=== PATIENT | male | born 1945 | race Caucasian/White ===

== ENCOUNTER 2019-05-21 23:57 | Inpatient (IN) | payer MEDICAID, OTHER ==
[~2019-05-21] VITALS: Ht 172.7 cm; Wt 78.7 kg
[2019-05-22 00:15] VITALS: BP 114/62
--- NOTE | 2019-05-22 00:15 | NUR ---
8386-- PT BIBA BLS TO ER BED 9
--- NOTE | 2019-05-22 00:30 | NUR ---
74 YO MALE BIBA C/O RECTAL BLEEDING X1 @ SNF. STAFF @ FACILITY STATE X1 EPISODE BRIGHT RED BLOOD WITH BM NOTED. PT AOX2, FOLLOWING COMMANDS, BODY STIFF RIGID @ THIS TIME JUNCTIONAL RHYTHM ON MONITOR, PALPABLE PULSES TO BILATERAL UPPER AND LOWER EXTREMITIES. SKIN PALE, COOL DRY INTACT. SCATTERED BRUISING NOTED TO UPPER AND LOWER EXTREMITIES. SKIN TEARS TO BILATERAL ELBOWS. DISCOLORATION TO L AND R EYE. INCONTINENT. BED LOCKED IN LOWEST POSITION HX: SEPSIS STEMI, KIDNEY DX, COPD, HYPOTHYROID, DM, ANEMIA, EMBOLISM, CARDIAC DISEASE, DEMENTIA AX: MEPERDINE
[2019-05-22 01:44] LABS: EOSINOPHILS # (AUTO) 0.2 K/uL (0-0.4); LYMPHOCYTES # (AUTO) 0.6 K/uL (2.0-11.5); WHITE BLOOD COUNT (AUTO) 3.3 K/uL (4.8-10.8)
[2019-05-22 01:51] LABS: BASOPHILS % (AUTO) 0.9 % (0.0-2.0); EOSINOPHILS % (AUTO) 6.8 % (0.0-4.0); LYMPHOCYTES % (AUTO) 17.8 % (20.5-51.1); MEAN CORPUSCULAR HEMOGLOBIN 34 pg (27-31); MEAN CORPUSCULAR HGB CONC 33 g/dL (33-37); MEAN CORPUSCULAR VOLUME 105.6 fL (80-94); MONOCYTES # (AUTO) 0.3 K/uL (0.8-1.0); NEUTROPHILS # (AUTO) 2.2 K/uL (1.8-7.7); NEUTROPHILS % (AUTO) 66.5 % (42.2-75.2); PLATELET COUNT (AUTO) 164 K/uL (140-450); RED BLOOD CELL COUNT(AUTO) 2.18 MIL/uL (4.20-6.10); RED CELL DISTRIBUTION WIDTH 17.4 % (11.6-13.7)
[2019-05-22 02:04] LABS: HEMOGLOBIN 7.5 g/dL (12.0-18.0)
[2019-05-22 02:11] LABS: PROTHROMBIN TIME 12.5 secs (10.8-13.4)
[2019-05-22 02:17] LABS: ALBUMIN 2.4 g/dL (3.4-5.0); ANION GAP 12.1 (8-16); ASPARTATE AMINOTRANSFERASE 15 U/L (15-37); CARBON DIOXIDE 28.7 mmol/L (21-32); CHLORIDE 102 mmol/L (98-107); GLUCOSE 118 mg/dL (74-106); LIPASE 37 U/L (73-393); POTASSIUM 3.8 mmol/L (3.5-5.1); SODIUM SERUM 139 mmol/L (136-145); TOTAL BILIRUBIN 0.3 mg/dL (0.0-1.0); UREA NITROGEN, BLOOD 36 mg/dL (7-18)
[2019-05-22 02:21] LABS: CREATININE 4.4 mg/dL (0.7-1.3)
[2019-05-22] MEDS ORDERED: HALOPERIDOL IM 5 MG/ML VIAL IM ONE (02:30)
--- NOTE | 2019-05-22 02:30 | NUR ---
PT PULLING OFF LINES/MONITORS, REDIRECTED. MARLENED MADE AWARE.
[2019-05-22] MEDS ORDERED: NACL 0.9% 1,000 ML IV SCH (02:36)
[2019-05-22] MEDS ORDERED: ONDANSETRON 4 MG/2 ML VIAL IM/IVP PRN (02:40)
[2019-05-22] MEDS ORDERED: DOCUSATE SODIUM 100 MG GELCAP PO PRN (02:40)
[2019-05-22] MEDS ORDERED: MORPHINE SULFATE 2 MG/ML SYR IVP PRN (02:40)
[2019-05-22] MEDS ORDERED: ACETAMINOPHEN 325 MG TAB PO PRN (02:40)
[2019-05-22] MEDS ORDERED: HYDROcodone/APAP 5/325 MG 1 TAB TAB PO PRN (02:40)
--- NOTE | 2019-05-22 02:45 | NUR ---
PT CONTINUES TO PULL OFF LINES/MONITOR CABLES, PT UNABLE TO FOLLOW COMMANDS @ THIS TIME. ERMD MADE AWARE. YONAS CHRISTIANSON ORDERED. SEE EMAR FOR DETAILS
--- NOTE | 2019-05-22 02:48 | NUR ---
UNABLE TO OBTAIN URINE SAMPLE, PT REFUSING CATHETER WELL. MARLENED MADE AWARE.
[2019-05-22 03:11] LABS: MAGNESIUM 1.7 mg/dL (1.8-2.4); PHOSPHORUS 3.2 mg/dL (2.5-4.9); THYROID STIMULATING HORMONE 7.93 uIU/mL (0.34-3.74)
[2019-05-22] MEDS ORDERED: FAMO-90 PO (03:16)
[2019-05-22] MEDS ORDERED: QUET200T PO (03:18)
[2019-05-22] MEDS ORDERED: DIVA250E1 PO (03:18)
[2019-05-22] MEDS ORDERED: HYDR-5123 PO (03:19)
[2019-05-22] MEDS ORDERED: DOCU-300 PO (03:22)
[2019-05-22] MEDS ORDERED: ATI.5 PO ×2 (03:23→04:10)
[2019-05-22] MEDS ORDERED: RIVA20TA4 PO (03:24)
[2019-05-22] MEDS ORDERED: AMLO10TA PO (03:25)
[2019-05-22] MEDS ORDERED: DONE10TA10 PO (03:26)
[2019-05-22] MEDS ORDERED: METO100T14 PO (03:28)
--- NOTE | 2019-05-22 03:30 | NUR ---
Patient will be admitted to care of DR MCBRIDE. Admited to [facility] ROOM 108A Belongings list completed. Report to MITRA VELASQUZE.
[2019-05-22] MEDS ORDERED: ZIPRASIDONE MESYLATE 20 MG/ML VIAL IM ONE (03:35)
[2019-05-22 04:00] VITALS: BP 149/30
--- NOTE | 2019-05-22 04:00 | NUR ---
PT BROUGHT UP TO FLOOR SAKSHI, REPORT GIVEN [facility] B[facility] FOR CONTINUITY OF CARE, PT YELLING OUT HELP ME , HELP ME AND TRYING TO KICK AND SWING AT STAFF. PT WAS GIVEN HALDOL IM IN ER, HOWEVER HE IS STILL HAS BEHAVIORS. PT TRANSFERRED TO BED 108A WITHOUT ISSUE. PT HAS 3 SKIN TEARS AND IV SITE ON RIGHT UPPER CHEST. 22G. PT ALSO HAS QUINTAN CATH ON LEFT UPPER CHEST.PT PLACED ON FALLS PROTOCOL.
[2019-05-22] MEDS ORDERED: HYDROcodone/APAP 7.5/325 MG 1 TAB PO PRN (04:10)
[2019-05-22] MEDS ORDERED: DIVA125E1 PO (04:10)
[2019-05-22] MEDS ORDERED: DOCUSATE SODIUM 100 MG GELCAP PO SCH (04:10)
[2019-05-22] MEDS ORDERED: LORazepam 0.5 MG TAB PO PRN (04:10)
[2019-05-22] MEDS ORDERED: METO25TA PO (04:10)
[2019-05-22] MEDS ORDERED: WATER STERILE 10 ML MC ONE (04:11)
[2019-05-22] MEDS ORDERED: PANTOPRAZOLE 40 MG INJ VIAL IVP ONE (04:20)
[2019-05-22] MEDS ORDERED: MAG SULF 2000 MG/WATER PREMIX 50 ML IV ONE (04:35)
--- NOTE | 2019-05-22 05:00 | NUR ---
MD TANNER ORDERED 10MG OF GEODON IN A IM SHOT. PT WAS GIVEN SHOT, WELL NS RUNNING AT 60MLS/HR. MD TANNER ORDERED, ROCEPHIN IVPB, MAG SULFATE AND FLAGYL IVPB. PT HAS NO C/O OF PAIN. MD TANNER DID A RECTAL EXAM NO BM NOTED. NO BLEEDING IN RECTAL AT THIS TIME.
[2019-05-22 06:16] LABS: BASOPHILS % (AUTO) 0.9 % (0.0-2.0); EOSINOPHILS # (AUTO) 0.3 K/uL (0-0.4); EOSINOPHILS % (AUTO) 7.2 % (0.0-4.0); HEMATOCRIT 22.7 % (36-52); HEMOGLOBIN 7.4 g/dL (12.0-18.0); LYMPHOCYTES # (AUTO) 0.5 K/uL (2.0-11.5); LYMPHOCYTES % (AUTO) 14.7 % (20.5-51.1); MEAN CORPUSCULAR HEMOGLOBIN 35 pg (27-31); MEAN CORPUSCULAR HGB CONC 33 g/dL (33-37); MEAN CORPUSCULAR VOLUME 105.7 fL (80-94); MONOCYTES # (AUTO) 0.3 K/uL (0.8-1.0); MONOCYTES % (AUTO) 8.9 % (1.7-9.3); NEUTROPHILS # (AUTO) 2.4 K/uL (1.8-7.7); NEUTROPHILS % (AUTO) 68.3 % (42.2-75.2); PLATELET COUNT (AUTO) 162 K/uL (140-450); RED BLOOD CELL COUNT(AUTO) 2.15 MIL/uL (4.20-6.10); RED CELL DISTRIBUTION WIDTH 17.5 % (11.6-13.7); WHITE BLOOD COUNT (AUTO) 3.5 K/uL (4.8-10.8)
[2019-05-22] MEDS: metroNIDAZOLE 500 MG/NS PREMIX 100 ML IV SCH ×3 (06:33→21:26)
[2019-05-22 06:50] LABS: CHOL/HDL RATIO 2.5 (1-4.5)
--- NOTE | 2019-05-22 07:00 | NUR ---
PT SLEEPING NO S/S OF PAIN OF DISTRESS NOTED. WOUNDS REDRESSED. IV SITE INTACT AND RUNNING FLUIDS ORDERED. WILL ENDORSE CARE TO AM SHIFT.
--- NOTE | 2019-05-22 07:05 | NUR ---
RECEIVED PATIENT FROM VARNISH FINISHER NURSE. PATIENT IS SLEEPING AT THIS TIME. NO SIGNS OF DISTRESS NOTED. RESPIRATIONS EVEN AND UNLABORED, ON ROOM AIR. SKIN DRY, INTACT, BRUISING IN BOTH ARMS NOTED. REDNESS IN BUTTOCK NOTED. BOWEL SOUNDS PRESENT X4 QUADS. IV L UPPER CHEST, NS 0.9% 5 ML/HR. IV PATENT DRY AND INTACT. BED IN LOW POSITION. CALL LIGHT IS WITHIN REACH. WILL CONTINUE TO MONITOR.
[2019-05-22 08:00] VITALS: BP 131/30
[2019-05-22] MEDS ORDERED: METOPROLOL 25 MG TAB PO SCH (09:00)
[2019-05-22] MEDS: PANTOPRAZOLE 40 MG INJ VIAL IVP SCH ×2 (09:14→21:35)
[2019-05-22] MEDS: QUEtiapine FUMARATE 100 MG TAB PO SCH ×2 (09:23→21:48)
[2019-05-22] MEDS: FAMOTIDINE 20 MG TAB PO SCH (09:23)
[2019-05-22] MEDS: amLODIPine 5 MG TAB PO SCH (09:24)
[2019-05-22] MEDS: DIVALPROEX SPRINKLES 125 MG CAPDR PO SCH ×2 (09:24→21:43)
--- NOTE | 2019-05-22 09:24 | NUR ---
ADMINISTERED MORNING MEDICATIONS CRUSHED. PATIENT TOLERATED WELL. EDUCATED PATIENT ON MEDICATIONS. WILL CONTINUE TO MONITOR.
--- NOTE | 2019-05-22 10:00 | NUR ---
PATIENT OFF UNIT FOR CT OF THE HEAD.
--- NOTE | 2019-05-22 10:13 | NUR ---
PATIENT HAS BEEN SCREENED AND CATEGORIZED HIGH NUTRITION RISK. PATIENT WILL BE SEEN WITHIN 1-2 DAYS OF ADMISSION. 05/22/19-05/23/[address]
[2019-05-22] MEDS ORDERED: INSULIN LISPRO SLIDING SCALE 100 UNITS/ML VIAL SUBQ PRN (11:20)
[2019-05-22] MEDS: BLOOD GLUCOSE MONITORING 1 DEV DEV FS SCH ×3 (11:46→21:25)
[2019-05-22 12:00] VITALS: BP 102/33
[2019-05-22] MEDS: DEXT 5% / NACL 0.9% 500 ML IV SCH (12:15)
[2019-05-22] MEDS: DEXTROSE 50% 50 ML SYR IVP PRN (12:20)
--- NOTE | 2019-05-22 12:20 | NUR ---
ADMINISTERED D50 IVP FOR BLOOD SUGAR 65. WILL CONTINUE TO MONITOR.
[2019-05-22 12:26] LABS: APPEARANCE,URINE CLOUDY (CLEAR); BILIRUBIN,URINE NEGATIVE (NEGATIVE); BLOOD, URINE 2+ (NEGATIVE); COLOR,URINE YELLOW (YELLOW); LEUKOCYTE ESTERASE ,URINE 3+ (NEGATIVE); NITRITE, URINE NEGATIVE (NEGATIVE); UGLUCOSE NEGATIVE (NEGATIVE)
--- NOTE | 2019-05-22 13:00 | NUR ---
NOTIFIED [facility] OF DIALYSIS REGARDING PT'S HEMODIALYSIS SCHED FOR TOMORROW.
[2019-05-22 13:15] LABS: WBC,URINE 20-60 /HPF (0-5)
--- NOTE | 2019-05-22 13:32 | NUR ---
ADMINISTERED FLAGYL VIA IVPB. PATIENT IS CURRENTLY SLEEPING AT THIS TIME. WILL CONTINUE TO MONITOR PATIENT. BED IN LOW POSITION. CALL LIGHT IS WITHIN REACH.
--- NOTE | 2019-05-22 15:39 | NUR ---
PATIENT IS SLEEPING AT THIS TIME. NO DISTRESS NOTED. WILL CONTINUE TO MONITOR
--- NOTE | 2019-05-22 15:40 | NUR ---
Cash Control Specialist Note: Basic Screen: Yes High Risk DC Screen Yes Name: CHANDU TIWARI Home Relationship: SISTER Pre-Admission Living Arrangements: SNF Current Home Health Name/Tel: N/A Current DME/02 Name/Tel: N/A Current Hospice Name/Tel: N/A Current Dialysis Name/Tel: N/A Healthcare Decision Maker: Next of Kin Advance Directive No Discipline: Case Mgt/Social Svcs Tentative Discharge Plan/Destination: SNF/ECF Tentative Discharge Plan Summary: Patient is a 74-year-old male admitted for hyperkalemia, CHF, and ESRD. Patient has PMHX of Dementia, Bipolar DO, Anxiety, Schizoaffective DO, HTN ESRD on HD sat//sat with Dr. Haider, DM-II, CAD, Anemia requiring transfusions, Sepsis, Conjuctival Hemorrhage, Cardiac arrest x2 6 months ago, and Bradycardia with HR of 16. Patient was admitted from [facility]. SW called [facility] and was told that patient is a senior care patient and is currently on a bed hold. Patient's healthcare decision maker is Chandu Tiwari [phone], according to Dora Solo and has no advanced directive on file. Tentative plan after discharge is for patient to return to [facility]. No further needs identified. Signature: SHERYL Ross Date: May 22, 2019 Time: 15:37
--- NOTE | 2019-05-22 15:51 | NUR ---
05/22/19 RD INITIAL ASSESSMENT COMPLETED PLEASE REFER TO NUTRITION ASSESSMENT UNDER CARE ACTIVITY FOR ESTIMATED NUTRITIONAL NEEDS. 1. CONTINUE NPO UNTIL PT MEDICALLY APPROPRIATE TO BEGIN NUTRITION 2. [facility] WHEN APPROPRIATE 3. WHEN MEDICALLY APPROPRIATE PROVIDE GLUCERNA BID 4. RD TO FOLLOW-UP 2-3 DAYS, HIGH RISK SULMA NGUYỄN RD
[2019-05-22 16:00] VITALS: BP 150/40
[2019-05-22 18:36] LABS: EOSINOPHILS # (AUTO) 0.2 K/uL (0-0.4); HEMATOCRIT 25.8 % (36-52); HEMOGLOBIN 8.4 g/dL (12.0-18.0); LYMPHOCYTES # (AUTO) 0.4 K/uL (2.0-11.5); LYMPHOCYTES % (AUTO) 10.2 % (20.5-51.1); MEAN CORPUSCULAR HEMOGLOBIN 35 pg (27-31); MEAN CORPUSCULAR HGB CONC 33 g/dL (33-37); MEAN CORPUSCULAR VOLUME 106.7 fL (80-94); MONOCYTES # (AUTO) 0.3 K/uL (0.8-1.0); MONOCYTES % (AUTO) 7.8 % (1.7-9.3); NEUTROPHILS # (AUTO) 3.1 K/uL (1.8-7.7); PLATELET COUNT (AUTO) 180 K/uL (140-450); RED BLOOD CELL COUNT(AUTO) 2.42 MIL/uL (4.20-6.10); RED CELL DISTRIBUTION WIDTH 17.1 % (11.6-13.7); WHITE BLOOD COUNT (AUTO) 4.1 K/uL (4.8-10.8)
--- NOTE | 2019-05-22 19:25 | NUR ---
ENDORSED PATIENT TO OPERATING ROOM ORDERLY NURSE FOR CONTINUITY OF CARE. PATIENT IS IN STABLE CONDITION.
--- NOTE | 2019-05-22 19:25 | NUR ---
RECEIVED REPORT FROM MIRANDA VELASQUEZ DAYSHIFT NURSE AT BEDSIDE FOR CONTINUITY OF CARE, PT IN STABLE CONDITION.
[2019-05-22 20:00] VITALS: BP 114/30
--- NOTE | 2019-05-22 20:00 | NUR ---
MD WAS AT BEDSIDE FOR A CONSULT WITH RESIDENT. RESIDENT AOX1, HE DENIES ANY PAIN IN HIS ABDOMEN AND HAS NO EVIDENCE OF RECTAL BLEEDING AT THIS TIME. GERARD MCLEOD ORDERED A COLONOSCOPY TO BE DONE FOR SATURDAY AND BOWEL PREP TO BE STARTED NOW FOR THE PROCEDURE. PROCEDURE EXPLAINED AT BEDSIDE TO PT WHO VERBALIZED UNDERSTANDING.
--- NOTE | 2019-05-22 20:30 | NUR ---
PT IN BED RESTING WITH EYES CLOSED, HE WAS TURNED AND REPOSITIONED IN BED. V/S FOLLOWS: T 97.0 P 66 R 18 B/P 114/30 02 95% ON ROOM AIR. AWAITING BM FOR PENDING STOOL SAMPLE. IV SITE ON RIGHT CHEST INTACT AND RUNNING D5NS AT 10MLS/HR ORDERED. ALL FALLS PRECAUTIONS IN PLACE AT THIS TIME.
--- NOTE | 2019-05-22 21:00 | NUR ---
PT IN BED FINGERSTICK IS 78, NO HUMALOG COVERAGE NEEDED AT THIS TIME. ALL SCHEDULED MEDS GIVEN AT THIS TIME. MEDICATION EDUCATION DONE AT BED SIDE, PT VERBALIZED UNDERSTANDING. SNACK OF APPLE SAUCE GIVEN TO PT DUE TO LOW FINGERSTICK. PT UNABLE TO SIGN CONSENTS OF HD SCHEDULED FOR TOMORR AND THE COLONOSCOPE SCHEDULED FOR SATURDAY. SISTER CALLED AND WAS MADE AWARE OF THE PENDING PROCEDURES SISTER GAVE VERBAL CONSENT FOR PENDING PROCEDURES.
[2019-05-22] MEDS: DONEPEZIL 10 MG TAB PO SCH (21:43)
[2019-05-22] MEDS: METOPROLOL 25 MG TAB PO SCH (21:47)
[2019-05-22] MEDS: SENNA 8.6 MG TAB PO SCH (21:48)
[2019-05-22] MEDS: POLYETHYLENE GLYCOL 17 GM/PKT PO SCH (21:48)
[2019-05-23] VITALS (11 sets, daily range): BP systolic 95–175; BP diastolic 30–99
[2019-05-23] MEDS ORDERED: MORPHINE SULFATE 2 MG/ML SYR ONE (00:50)
--- NOTE | 2019-05-23 01:00 | NUR ---
PT IN BED RESTING WITH EYES CLOSED,STAFF ATTEMPTED TO TAKE B/P AND PT STARTED TO BECOME AGITATED SAYING I NEED HELP I TERI HELP, BUT WHEN ASKED COULD NOT EXPRESS WHAT HE NEEDED HELP WITH. PT CONTINUED TO KEEP REPEATING I NEED HELP AND STARTED TO GET LOUDER AND LOUDER AND MORE UNCOOPERATIVE WITH VITAL SIGNS. PT WAS GIVEN PO/PRN ATIVAN. PT CONTINUED TO SAY I NEED HELP. PT WAS GIVEN MORPHINE FOR C/O SEVERE GENERALIZED PAIN WHEN ASKED WHAT HE NEEDED HELP WITH AND IF HE WAS NI PAIN, HE SAID YES I HAVE PAIN, AND HE WAS GIVEN IVP MORPHINE FOR PAIN. RESIDENTS CALLED AND ORDERED HALDOL IM SHOT TO HELP CALM PT DOWN.
[2019-05-23] MEDS ORDERED: LORazepam 0.5 MG TAB PO SCH ×2 (01:30→09:00)
[2019-05-23] MEDS ORDERED: HALOPERIDOL IM 5 MG/ML VIAL IM ONE (01:30)
--- NOTE | 2019-05-23 01:35 | NUR ---
RESIDENT MADE AWARE THAT PT CONTINUES TO BE AGGITATED , YEELING AT STAFF AND TRYING TO GET OUT OF BED. MD TANNER ORDERED ANOTHER ATIVAN NOW AND BID INSTEAD OF PRN , TO KEEP PT CALM. WILL MONITOR EFFECTS OF MEDICATION. ALL FALLS PROTOCOL IN PLACE.
--- NOTE | 2019-05-23 02:10 | NUR ---
PT CONTINUES TO YELL OUT HELP ME HELP ME. HE IS IN BED WITH ALL FALLS PROTOCOL IN PLACE. FREQUENT ROUNDS PROVIDED FOR SAFETY. AWAITING EFFECT OF PRN MEDS.
--- NOTE | 2019-05-23 03:15 | NUR ---
PT ASLEEP, NO S/S OF PAIN OR DISTRESS NOTED. ALL FALLS PRECAUTIONS IN PLACE AND CALL REEDER IN REACH.
--- NOTE | 2019-05-23 04:00 | NUR ---
PT IN BED SLEEPING ALL FALLS PRECAUTIONS IN PLACE. V/S FOLLOWS: T 97.0 P 73 R 18 B/P 133/43 02 97% ON ROOM AIR.
--- NOTE | 2019-05-23 04:30 | NUR ---
NASEEM HUNG AND IS RUNNING ORDERED. IV SITE INTACT AND FLUSHED PATENT. Addendum: 05/23/19 at 0525 by Samira Musa RN CONCEPCION GUSMAN WAS HUNG AT 0430AM.
--- NOTE | 2019-05-23 05:23 | NUR ---
LAB DRAWS DONE AT BEDSIDE.
--- NOTE | 2019-05-23 05:30 | NUR ---
NASEEM HUNG AND RUNNING ORDERED. IV SITE IS ASYMPTOMATIC.
[2019-05-23] MEDS: metroNIDAZOLE 500 MG/NS PREMIX 100 ML IV SCH ×3 (05:33→20:38)
[2019-05-23] MEDS: DIVALPROEX SPRINKLES 125 MG CAPDR PO SCH ×3 (05:42→20:39)
[2019-05-23] MEDS: DEXTROSE 50% 50 ML SYR IVP PRN (05:57)
--- NOTE | 2019-05-23 06:00 | NUR ---
PT FINGERSTICK IS 62, PT GIVEN IV PUSH DEXTROSE VIA IV SITE ON RIGHT CHEST. PT GIVEN DEPAKOTE SPRINKLES ORDERED. WILL RETAKE FINGERSTICK.
[2019-05-23] MEDS: BLOOD GLUCOSE MONITORING 1 DEV DEV FS SCH ×4 (06:01→21:08)
[2019-05-23 06:28] LABS: BASOPHILS % (AUTO) 1.1 % (0.0-2.0); EOSINOPHILS # (AUTO) 0.2 K/uL (0-0.4); EOSINOPHILS % (AUTO) 5.5 % (0.0-4.0); HEMATOCRIT 24.2 % (36-52); HEMOGLOBIN 7.9 g/dL (12.0-18.0); LYMPHOCYTES # (AUTO) 0.5 K/uL (2.0-11.5); LYMPHOCYTES % (AUTO) 14.7 % (20.5-51.1); MEAN CORPUSCULAR HEMOGLOBIN 35 pg (27-31); MEAN CORPUSCULAR HGB CONC 33 g/dL (33-37); MEAN CORPUSCULAR VOLUME 107.5 fL (80-94); MONOCYTES # (AUTO) 0.4 K/uL (0.8-1.0); MONOCYTES % (AUTO) 10.5 % (1.7-9.3); NEUTROPHILS # (AUTO) 2.4 K/uL (1.8-7.7); NEUTROPHILS % (AUTO) 68.2 % (42.2-75.2); PLATELET COUNT (AUTO) 179 K/uL (140-450); RED BLOOD CELL COUNT(AUTO) 2.25 MIL/uL (4.20-6.10); RED CELL DISTRIBUTION WIDTH 17.1 % (11.6-13.7); WHITE BLOOD COUNT (AUTO) 3.5 K/uL (4.8-10.8)
[2019-05-23 06:38] LABS: ANION GAP 15.5 (8-16); CARBON DIOXIDE 26.7 mmol/L (21-32); CHLORIDE 103 mmol/L (98-107); GLUCOSE 68 mg/dL (74-106); POTASSIUM 4.2 mmol/L (3.5-5.1); SODIUM SERUM 141 mmol/L (136-145); UREA NITROGEN, BLOOD 39 mg/dL (7-18)
--- NOTE | 2019-05-23 06:40 | NUR ---
FINGERSTICK RETAKEN AND IS 135. PT ASLEEP IN BED NO S/S OF PAIN OR DISTRESS, WILL ENDORSE CARE TO RELIVING AM SHIFT, PT IN STABLE CONDITION.
[2019-05-23 06:42] LABS: PHOSPHORUS 4.7 mg/dL (2.5-4.9)
[2019-05-23 07:02] LABS: CREATININE 5.5 mg/dL (0.7-1.3)
--- NOTE | 2019-05-23 07:02 | NUR ---
CRITICAL LAB REPORTED BY CASI IN LAB, CREATININE CLEARANCE IS 5.5. PT IS SCHEDULED FOR HD TODAY.
--- NOTE | 2019-05-23 07:27 | NUR ---
CARE ENDORSED TO VANDANA RN DAYSHIFT NURSE AT BEDSIDE FOR CONTINUITY OF CARE, PT IN STABLE CONDITION.
--- NOTE | 2019-05-23 07:28 | NUR ---
Received report from pm nurse Samira. Pt asleep in bed, respirations even & nonlabored, responsive to tactile stimuli. Right chest IV 22G intact with ongoing D5NS @ 10ml/h. Bed alarm on. Call light within reach.
[2019-05-23] MEDS: METOPROLOL 25 MG TAB PO SCH (08:32)
[2019-05-23] MEDS: amLODIPine 5 MG TAB PO SCH (08:33)
[2019-05-23] MEDS: QUEtiapine FUMARATE 100 MG TAB PO SCH ×2 (09:00→20:39)
[2019-05-23] MEDS: FAMOTIDINE 20 MG TAB PO SCH (09:00)
--- NOTE | 2019-05-23 09:00 | NUR ---
Dialysis nurse came in to initiate hemodialysis. Pt remains asleep, responsive to tactile stimuli, no signs of distress.
--- NOTE | 2019-05-23 09:35 | NUR ---
Informed by dialysis nurse that pt's BP dropped to 70/30, NS 500ml bolus administered. BP reassessed = 110/35, pt asleep but arousable by tactile stimuli. Pt yelled out when arm was moved. No signs of pain/discomfort. Will cont to monitor. Hemodialysis tx ongoing, dialysis remains at bedside at all times.
--- NOTE | 2019-05-23 10:07 | NUR ---
Spoke to Dr Vallecillo re: dialysis nurse's request for heparin 500units flush per dialysis cath port after dialysis tx. Per Dr Vallecillo, will input order.
[2019-05-23 10:08] LABS: FOLIC ACID 16.4 ng/mL (>3.0)
--- NOTE | 2019-05-23 10:50 | NUR ---
Reported by Erin dialysis nurse that another 500ml NS bolus given d/t persistent hypotension. Current BP 71/32 HR 80. Pt is awake, restless, yelling "I need help" repeatedly but unable to state what he needs help for when asked. Pt shows no signs of pain. Dr Benz notified of hypotension & nursing interventions. Physician came to see pt at bedside, new orders given. Initiated 500ml NS bolus to right upper chest peripheral IV. Will continue to monitor.
[2019-05-23] MEDS ORDERED: NACL 0.9% 500 ML IV SCH (11:00)
[2019-05-23] MEDS ORDERED: ALBUMIN HUMAN 25% 100 ML IV ONE (11:15)
--- NOTE | 2019-05-23 12:00 | NUR ---
Per Erin dialysis nurse, hemodialysis stopped with 1.5hr treatment, 0ml taken out. Addendum: 05/23/19 at 1417 by Mary Alanis RN Addendum: Obtained verbal consent via phone from Chandu Karie (sister) for blood transfusion, verified with 2nurses.
[2019-05-23 12:33] LABS: EOSINOPHILS # (AUTO) 0.2 K/uL (0-0.4); EOSINOPHILS % (AUTO) 6.4 % (0.0-4.0); HEMATOCRIT 23.5 % (36-52); HEMOGLOBIN 7.6 g/dL (12.0-18.0); LYMPHOCYTES # (AUTO) 0.4 K/uL (2.0-11.5); LYMPHOCYTES % (AUTO) 12.4 % (20.5-51.1); MEAN CORPUSCULAR HEMOGLOBIN 35 pg (27-31); MEAN CORPUSCULAR HGB CONC 32 g/dL (33-37); MONOCYTES # (AUTO) 0.3 K/uL (0.8-1.0); MONOCYTES % (AUTO) 9.3 % (1.7-9.3); NEUTROPHILS # (AUTO) 2.4 K/uL (1.8-7.7); NEUTROPHILS % (AUTO) 70.9 % (42.2-75.2); PLATELET COUNT (AUTO) 159 K/uL (140-450); RED BLOOD CELL COUNT(AUTO) 2.17 MIL/uL (4.20-6.10); RED CELL DISTRIBUTION WIDTH 17.2 % (11.6-13.7); WHITE BLOOD COUNT (AUTO) 3.4 K/uL (4.8-10.8)
[2019-05-23] MEDS: PANTOPRAZOLE 40 MG INJ VIAL IVP SCH ×2 (12:38→20:40)
[2019-05-23] MEDS: SENNA 8.6 MG TAB PO SCH ×4 (12:41→21:08)
[2019-05-23] MEDS: LACTULOSE 20 GM/30 ML UDC PO SCH ×3 (12:41→18:03)
[2019-05-23] MEDS: POLYETHYLENE GLYCOL 17 GM/PKT PO SCH ×2 (12:42→20:39)
[2019-05-23] MEDS: DEXT 5% / NACL 0.9% 500 ML IV SCH (12:49)
[2019-05-23 12:56] LABS: ANION GAP 15.2 (8-16); CARBON DIOXIDE 26.4 mmol/L (21-32); CHLORIDE 104 mmol/L (98-107); GLUCOSE 125 mg/dL (74-106); POTASSIUM 3.6 mmol/L (3.5-5.1); SODIUM SERUM 142 mmol/L (136-145); UREA NITROGEN, BLOOD 26 mg/dL (7-18)
[2019-05-23 13:09] LABS: PROTHROMBIN TIME 11.7 secs (10.8-13.4)
--- NOTE | 2019-05-23 13:35 | NUR ---
Pt transferred to ICU3 via hospital bed, report given to Audelia ICU nurse.
--- NOTE | 2019-05-23 13:45 | NUR ---
AT 1336, PT RECEIVED FROM TELE UNIT VIA BED. PT A/O X4. MAKES NEEDS KNOWN. SCREAMING. IN ROOM AIR. NO SOB OR RESPIRATORY DISTRESS NOTED. SKIN DRY AND WARM TO TOUCH. RED RIGHT EYE NOTED. LUNGS DIMINISHED. ABDOMEN SOFT, ROUND AND NON-TENDER. ACTIVE BOWEL SOUND. PERIPHERAL LINE NOTED ON RIGHT UPPER CHEST 22 G. INTACT LINE D5%NS INFUSING AT 10 ML/HR. THERESE CATH NOTED ON LEFT UPPER CHEST. COVERED WITH DRESSING. INTACT DRESSING. OLD AV SHUNT SITE ON BOTH ARMS COVERED WITH DRESSING INTACT DRESSING. BRUISE NOTED ON RIGHT EYE, RIGHT ARM. SKIN TEAR NOTED ON LEFT LOWER LEG COVERED WITH DRESSING. INCONTINENT DERMATITIS NOTED ON BUTTOCKS AND SACRAL AREA WITH OPEN SKIN ON SACRAL AREA. PT WENT BM X1. KEPT AREA CLEAN AND DRY. OFFLOADED PRESSURE AREAS. HOB ELEVATED. BED IN LOW POSITION LOCKED. WILL CONTINUE TO MONITOR.
[2019-05-23] MEDS ORDERED: LORazepam 2 MG/ML VIAL IM/IVP SCH (14:11)
--- NOTE | 2019-05-23 15:45 | NUR ---
PT EVALUATED BY DR AMBROSE. DR. MENENDEZ AT THE BEDSIDE WITH DR. AMBROSE. WILL F/U ORDER.
[2019-05-23] MEDS ORDERED: EPOETIN ALFA 10,000 UNITS/ML VIAL IV SCH (16:28)
[2019-05-23] MEDS ORDERED: Z-GUARD PASTE TP ONE (16:28)
--- NOTE | 2019-05-23 16:30 | NUR ---
BMX1. CLEANED. KEPT PT DRY. REPOSITIONED. APPLIED MEDS PER ORDER, COVERED WITH VERSATEL DRESSING PER ORDER. OFFLOADED PRESSURE AREAS.
--- NOTE | 2019-05-23 16:40 | NUR ---
PT EVALUATED BY DR. BARRERA. UPDATED PT STATUS. NO NEW ORDER AT THIS TIME.
[2019-05-23] MEDS ORDERED: HALOPERIDOL 1 MG TAB PO ONE (16:55)
[2019-05-23] MEDS ORDERED: HALOPERIDOL IM 5 MG/ML VIAL ONE (17:07)
--- NOTE | 2019-05-23 17:25 | NUR ---
PT TAKEN TO THE CT.
--- NOTE | 2019-05-23 17:31 | NUR ---
MARKY MADE AWARE OF HD TOMORROW.
--- NOTE | 2019-05-23 17:41 | NUR ---
BACK FROM CT.
[2019-05-23] MEDS ORDERED: HALOPERIDOL IM 5 MG/ML VIAL IM SCH ×3 (18:00→23:25)
--- NOTE | 2019-05-23 18:25 | NUR ---
SPOKE TO MICHAEL ( [facility] ) RE: NEED TO TRANSFER PT. FOR NEUROSURGEON SPECIALIST. MED. RECORDS FAXED. Addendum: 05/23/19 at 1922 by Cindy Hernandez RN TEL. NUMBER [phone]. FAX NUMBER [phone].
--- NOTE | 2019-05-23 18:40 | NUR ---
SPOKE TO AZAM FROM [facility]. MEDICAL RECORDS FAXED. Addendum: 05/23/19 at 1924 by Cindy Hernandez RN AZAM FROM [facility] NOT [facility]. TEL. NO. [phone]. FAX NO. [phone]
--- NOTE | 2019-05-23 18:50 | NUR ---
SPOKE TO RUBIO FROM [facility] [phone]. MEDICAL RECORDS FAXED [phone].
--- NOTE | 2019-05-23 19:05 | NUR ---
DR. GARCIA MADE AWARE OF ELEVATED BP.
[2019-05-23 19:06] LABS: T4 (THYROXINE) 2.5 ug/dL (4.5 - 12.0)
--- NOTE | 2019-05-23 19:20 | NUR ---
ENDORSED TO HEATER OPERATOR RN FOR CONTINUITY OF CARE. PT STABLE AT THIS TIME.
[2019-05-23] MEDS ORDERED: hydrALAZINE 20 MG/ML VIAL IVP SCH (19:30)
--- NOTE | 2019-05-23 19:30 | NUR ---
RECEIVED REPORT FROM DAYSHIFT NURSE AT PATIENTS BEDSIDE. PATIENT IS RESTING CALMLY IN BED, EYES CLOSED, OPENS EYES TO NAME. PATIENT IS ALERT TO NAME BUT CONFUSED ON PLACE AND TIME. ON ROOM AIR WITH SATURATIONS AT 90%. PT HAS RIGHT UPPER CHEST PERIPHERAL LINE 22G, FLUSHED AND PATENT, INFUSING DS NS @ 10ML. LEFT UPPER CHEST IS THERESE CATHETER. LUNG SOUNDS ARE CLEAR, BREATHING IS UNLABORED, PATIENT IS ABLE TO MAKE FULL SENTENCES WITHOUT DISTRESS. S1S2, SR ON MONITOR. SKIN IS WARM AND DRY. VISIBLE BRUISES NOTED ON BILATERAL UPPER EXTREMITIES. RIGHT LOWER LEG IS A SMALL PRESSURE ULCER, BARRIER CREAM IS NOTED WITH A CLEAN AND DRY DRESSING. ABDOMEN IS SOFT AND NONTENDER, WITH ACTIVE BOWEL SOUNDS. ADULT DIAPER IN PLACE, PATIENT IS INCONTINENT. INCONTINENT DERMATITIS NOTED AT PERINEAL AREA, HYDRAGUARD APPLIED, THERE IS A SMALL SKIN TEAR AT THE SACRUM. DRESSING IS IN PLACE. CALL LIGHT IS WITHIN REACH, PATIENT IS UPDATED ON CARE PLAN. SIDERAILS UPx3, ALL SAFETY ALARMS IN PLACE, WILL CONTINUE TO MONITOR.
--- NOTE | 2019-05-23 20:05 | NUR ---
PER RESIDENT MD, OK TO NOT INFUSE 1 UNIT OF PRBC'S. ORDER/PARAMETERS INDICATE TO INFUSE 1 UNIT IF HGB LESS THAN 7, PATIENTS HGB IS 7.6.
--- NOTE | 2019-05-23 20:30 | NUR ---
JOSELINE FROM [facility] CALLED; NO BED AVAILABLE @ THIS TIME.
[2019-05-23] MEDS: DONEPEZIL 10 MG TAB PO SCH (20:40)
[2019-05-23] MEDS ORDERED: BOWEL EVACUANT DRINK 4,000 ML PDS PO SCH (20:40)
--- NOTE | 2019-05-23 21:00 | NUR ---
[facility] CALLED; PATIENT ACCEPTED, AWAITING BED.
--- NOTE | 2019-05-23 21:45 | NUR ---
[facility], [place], CALLED TO SETUP WILL CALL TRANSPORT, ON [place]. AWAITING BED @ [place].
--- NOTE | 2019-05-23 22:14 | NUR ---
PATIENT IS SCREAMING AND CURSING AT STAFF. PATIENT ATTEMPTING TO REMOVE LINES/EQUIPMENT. DESPITE CLEANING AND CHANGING PATIENT, PATIENT IS STILL AGGRESSIVE, SPITTING ON NURSES, AND THREATENING STAFF. RESIDENT MD AWARE, ADMINISTERED HALDOL 1MG IM ORDERED.
[2019-05-23] MEDS ORDERED: LORazepam 2 MG/ML VIAL IVP SCH ×2 (22:55→23:25)
--- NOTE | 2019-05-23 23:00 | NUR ---
PATIENTS AGITATED BEHAVIOR IS ESCALATING, ATTEMPTING TO PULL OUT ALL LINES AND EQUIPMENT, PATIENT TRYING TO GET OUT OF BED. RESIDENT MD MADE AWARE, OK TO USE RESTRAINTS THAT WERE INITIATED THIS MORNING. WILL CARRY OUT.
--- NOTE | 2019-05-23 23:05 | NUR ---
SOFT WRIST RESTRAINTS IN PLACE. PATIENT IS THRASHING AROUND IN BED, SPITTING AT NURSES. PATIENT RIPPED HAND OUT OF THE RIGHT WRIST RESTRAINT AND CUT OPEN WRIST. SMALL LACERATION NOTED, RN STOPPED BLEEDING AND PHOTOGRAPH IS TAKEN AND DOCUMENTED. NONADHERING DRESSING IN PLACE AND KERLIX ROLL APPLIED. PATIENT IS CLEANED AND REPLACED LINEN AND GOWN. ALL VITALS REMAIN WITHIN NORMAL RANGE. IVP ATIVAN WAS GIVEN ORDERED. RESIDENT MD MADE AWARE OF SMALL CUT.
[2019-05-23] MEDS ORDERED: ZIPRASIDONE MESYLATE 20 MG/ML VIAL IM SCH (23:25)
--- NOTE | 2019-05-23 23:25 | NUR ---
CALLED RESIDENT DOCTOR, PATIENT IS CONTINUING TO SCREAM, CURSE, AND PULL OUT LINES. PATIENT IS UNCOOPERATIVE AND DIFFICULT TO CALM DOWN/CONSOLE. ALL VITALS ARE STABLE, PATIENT IS ROOM AIR WITH SATURATION 93%. NEW ORDERS FOR GEODON IM 10MG, WILL CARRY OUT.
--- NOTE | 2019-05-23 23:28 | NUR ---
SPO[place] WITH CAROLYN [place] [facility] BED [place] READY FOR PT TRANSFER. ACCEPTING MD-DR. MCBRIDE, PATIENT WILL GO TO SICU-BED #429, WILL CALL FOR REPORT. [phone]
[2019-05-24] VITALS: BP 95/68
--- NOTE | 2019-05-24 00:20 | NUR ---
PATIENT IS STARTING TO CALM DOWN, PATIENT IS NOT SCREAMING ANYMORE. RESTING IN BED, EYES OPEN. VSS. RESTRAINTS REMOVED.
--- NOTE | 2019-05-24 00:28 | NUR ---
CALLED [facility] TO GIVE REPORT, PHONE CALL DISCONNECTED, CALLED BACK, WAS TOLD TO CALL BACK IN 15 MINUTES, NURSE IS CURRENTLY WITH CRITICAL PATIENT. WILL CARRY OUT.
[2019-05-24] MEDS ORDERED: Z-GUARD PASTE TP SCH (01:00)
--- NOTE | 2019-05-24 01:00 | NUR ---
CALLED BACK AT SICU AT [facility]. BOTH NURSE AND CHARGE NURSE TO RECEIVE TRANSFER IS CODING ANOTHER PATIENT, WAS TOLD TO CALL BACK AGAIN IN 15 MINUTES. WILL CARRY OUT.
--- NOTE | 2019-05-24 01:20 | NUR ---
PATIENT AWAKE AGAIN AND STARTING TO CONTINUOUSLY SCREAM "HELP ME". EYES ARE CLOSED, PATIENT IS CONFUSED, NO SIGNS OF DISTRESS NOTED. PATIENT RESTLESS. TURNED AND REPOSITIONED PATIENT AND APPLIED ANOTHER BLANKET, WILL CONTINUE TO MONITOR.
[2019-05-24 02:00] VITALS: BP 134/69
--- NOTE | 2019-05-24 02:00 | NUR ---
[facility] CALLED TO NOTIFY RN REGARDING CARDIOLOGY NURSE. CURRENTLY RECEIVING NUMEROUS 911 CALLS AND UNABLE TO RECOVER OR PICKUP AT THIS TIME, ASKED TO ALLOW FOR ANOTHER 90 MINUTES AND WILL CALL BACK FOR FOLLOWUP.
--- NOTE | 2019-05-24 03:40 | NUR ---
PT RESTING WELL IN BED, EYES CLOSED, SNORING LOUD. NO SIGNS OF SOB OR DISTRESS. GOOD CHEST RISE AND FALL. BED IN LOWEST POSITION, SIDERAILS UP, SAFETY ALARMS IN PLACE.
[2019-05-24 04:00] VITALS: BP 132/72
--- NOTE | 2019-05-24 04:00 | NUR ---
CALLED [facility] FOR UPDATE, CONFIRMED THEY ARE PARKING NOW.
--- NOTE | 2019-05-24 05:00 | NUR ---
PATIENTS LAST VITAL SIGNS BEFORE CONNECTED TO [facility]'S EQUIPMENT: HEART RATE-67 BPM, BP-130/71, 02 SAT-99%, RR-13, FLACC 0.
--- NOTE | 2019-05-24 05:15 | NUR ---
[facility] HERE TO FOLDER INSPECTOR PATIENT FOR TRANSFER, REPORT GIVEN TO EMT AND PACKET/MEDICAL RECORD TAKEN WITH PATIENT. IV FLUIDS D/C AND IV SITE FLUSHED AND SALINE LOCKED. PATIENT CONNECTED TO TELE MONITOR. TRANSFERRED TO [facility] WITHOUT INCIDENT.
--- NOTE | 2019-05-24 05:25 | NUR ---
CALLED REPORT TO RON CARABALLO AT [facility], REPORT GIVEN.
--- NOTE | 2019-05-24 05:57 | NUR ---
PATIENTS SISTER CALLED FOR UPDATE, TRANSFERRED TO RESIDENT MD's LINE TO ANSWER QUESTIONS.
[2019-05-24] MEDS ORDERED: LEVOTHYROXINE 0.025 MG TAB PO SCH (06:30)
[2019-05-24] MEDS ORDERED: CHLORHEXADINE GLUC 2% CLOTH TP SCH (09:00)
[2019-05-24] MEDS ORDERED: MUPIROCIN CA NASAL 2% 1GM TUBE NS SCH (09:00)
[2019-05-24] MEDS ORDERED: BOWEL EVACUANT DRINK 4,000 ML PDS PO SCH (20:00)
[2019-05-26] MEDS ORDERED: EPOETIN ALFA 10,000 UNITS/ML VIAL IV SCH (09:00)
== END 2019-05-24 05:15 | disposition short-term general hospital (02) | DRG 377 ==
LOC: MED 23:57 → MTU 05-22 02:40 → MIC 05-23 14:00
PROVIDERS: ADMIT General Practice; ATTEND General Practice
DX: K62.5 Hemorrhage of anus and rectum (principal); J69.0 Pneumonitis due to inhalation of food and vomit; N17.0 Acute kidney failure with tubular necrosis; I50.43 Acute on chronic combined systolic (congestive) and diastolic (congestive) heart failure; E43 Unspecified severe protein-calorie malnutrition; N18.6 End stage renal disease; G93.41 Metabolic encephalopathy; I13.2 Hypertensive heart and chronic kidney disease with heart failure and with stage 5 chronic kidney disease, or end stage renal disease; S00.12XA Contusion of left eyelid and periocular area, initial encounter; K21.9 Gastro-esophageal reflux disease without esophagitis; I25.10 Atherosclerotic heart disease of native coronary artery without angina pectoris; D63.8 Anemia in other chronic diseases classified elsewhere; E02 Subclinical iodine-deficiency hypothyroidism; K59.09 Other constipation; E83.42 Hypomagnesemia; I95.9 Hypotension, unspecified; F03.90 Unspecified dementia, unspecified severity, without behavioral disturbance, psychotic disturbance, mood disturbance, and anxiety; E11.22 Type 2 diabetes mellitus with diabetic chronic kidney disease; Z96.652 Presence of left artificial knee joint; F25.0 Schizoaffective disorder, bipolar type; F41.9 Anxiety disorder, unspecified; Z99.2 Dependence on renal dialysis; Z86.74 Personal history of sudden cardiac arrest; Z86.718 Personal history of other venous thrombosis and embolism; Z79.01 Long term (current) use of anticoagulants; Z88.5 Allergy status to narcotic agent; Z79.899 Other long term (current) drug therapy; Z68.26 Body mass index [BMI] 26.0-26.9, adult; Y92.89 Other specified places as the place of occurrence of the external cause
CPT/HCPCS: 36415; 70450; 71045; 74018; 76604; 80048; 80053; 81001; 82272; 82607; 82746; 83036; 83605; 83690; 83735; 83880; 84100; 84436; 84439; 84443; 84484; 85025; 85379; 85384; 85610; 85730; 86886; 86900; 86901; 86920; 87040; 87081; 87086; 87186; 93005; 96372; 99285; C9113; J0360; J0696; J0885; J1630; J1815; J2060; J2270; J3475; J3486; J3490; J7030; J7042; J7060; P9046; Q0092